=== PATIENT | female | born 1945 | race African-American/Black ===

== ENCOUNTER 2022-12-05 03:07 | Inpatient (IN) | payer OTHER ==
[~2022-12-05] VITALS: Ht 165.1 cm; Wt 55.3 kg
[2022-12-05] MEDS ORDERED: ONDANSETRON HCL 4MG/2ML INJ IV STA (04:39)
[2022-12-05 05:15] LABS: BASOPHILS % 1.2 % (0.0-2.0); EOSINOPHILS % 1.4 % (0.0-5.0); HEMOGLOBIN. 13.1 g/dL (12.0-16.0); LYMPHOCYTES % 30.7 % (20.0-50.0); MEAN CORPUSCULAR HEMOGLOBIN 32.8 pg (28.0-32.0); MEAN CORPUSCULAR VOLUME 97.6 fL (81.0-99.0); MONOCYTES % 7.5 % (2.0-8.0); NEUTROPHILS % 59.2 % (40.0-76.0); PLATELET 193 x1000/uL (130-400); RED BLOOD CELL COUNT 3.99 mill/uL (4.2-5.4); RED CELL DISTRIBUTION WIDTH 12.9 % (11.6-14.6)
[2022-12-05 05:35] LABS: CHLORIDE 106 mEq/L (98-107)
[2022-12-05 06:43] LABS: CLARITY URINE CLOUDY (CLEAR); COLOR URINE YELLOW (YELLOW); KETONES URINE NEGATIVE (NEGATIVE); LEUKOCYTE ESTERASE URINE NEGATIVE (NEGATIVE); NITRITE URINE NEGATIVE (NEGATIVE); OCCULT BLOOD URINE NEGATIVE (NEGATIVE); PROTEIN URINE NEGATIVE (NEGATIVE); SPECIFIC GRAVITY URINE 1.017 (1.005-1.030)
[2022-12-05] MEDS ORDERED: ONDANSETRON HCL 4MG/2ML INJ IV NR (11:45)
[2022-12-05] MEDS ORDERED: MORPHINE SULFATE 4 MG/ML CPJ (NOT FOR IM USE) IV ONE ×2 (12:30→18:15)
[2022-12-05 13:01] LABS: BASOPHILS % 1.2 % (0.0-2.0); EOSINOPHILS % 1.1 % (0.0-5.0); HEMATOCRIT. 36.9 % (36.0-48.0); HEMOGLOBIN. 12.4 g/dL (12.0-16.0); LYMPHOCYTES % 34.8 % (20.0-50.0); MEAN CORPUSCULAR HEMOGLOBIN 32.9 pg (28.0-32.0); MEAN CORPUSCULAR VOLUME 97.8 fL (81.0-99.0); MEAN PLATELET VOLUME 8.7 fl (7.4-10.4); MONOCYTES % 8.5 % (2.0-8.0); NEUTROPHILS % 54.4 % (40.0-76.0); PLATELET 189 x1000/uL (130-400); RED BLOOD CELL COUNT 3.78 mill/uL (4.2-5.4); RED CELL DISTRIBUTION WIDTH 13.1 % (11.6-14.6)
[2022-12-05] MEDS ORDERED: IOHEXOL-350 100 ML BOTTLE ONE (14:24)
[2022-12-05 15:02] LABS: PROTHROMBIN TIME 11.2 sec (9.6-11.0)
[2022-12-05 16:00] LABS: CHLORIDE 109 mEq/L (98-107)
[2022-12-05 16:06] LABS: ETHANOL BLOOD < 10 mg/dL
[2022-12-06] MEDS ORDERED: MORPHINE SULFATE 2 MG/ML CPJ (NOT FOR IM USE) IV NR (04:45)
[2022-12-06 09:30] VITALS: BP 148/84
[2022-12-06] MEDS ORDERED: IPRATROPIUM/ALBUTEROL 0.5-3(2.5)MG/3ML NEB HHN PRN (12:45)
[2022-12-06] MEDS ORDERED: ACETAMINOPHEN 325MG TABLET PO PRN (12:45)
[2022-12-06] MEDS ORDERED: ONDANSETRON HCL 4MG/2ML INJ IV PRN (12:45)
[2022-12-06] MEDS: ENOXAPARIN 40MG/0.4ML SYR SUBCUT SCH (13:00)
[2022-12-06 16:00] VITALS: BP 154/70
[2022-12-06] MEDS: MORPHINE SULFATE 2 MG/ML CPJ (NOT FOR IM USE) IV PRN (16:00)
[2022-12-06 16:14] LABS: CREATINE KINASE MB FRACTION 1.4 ng/mL (0.5-3.6)
[2022-12-06 16:20] LABS: BASOPHILS % 0.8 % (0.0-2.0); EOSINOPHILS % 1.3 % (0.0-5.0); HEMOGLOBIN. 13.2 g/dL (12.0-16.0); LYMPHOCYTES % 28.7 % (20.0-50.0); MEAN CORPUSCULAR HEMOGLOBIN 32.5 pg (28.0-32.0); MEAN CORPUSCULAR VOLUME 98.5 fL (81.0-99.0); MEAN PLATELET VOLUME 8.7 fl (7.4-10.4); MONOCYTES % 8.9 % (2.0-8.0); NEUTROPHILS % 60.3 % (40.0-76.0); PLATELET 202 x1000/uL (130-400); RED BLOOD CELL COUNT 4.06 mill/uL (4.2-5.4); RED CELL DISTRIBUTION WIDTH 12.9 % (11.6-14.6)
[2022-12-06 20:00] VITALS: BP 124/73
[2022-12-06] MEDS: SODIUM CHLORIDE 0.45% 1,000 ML IV SCH (20:00)
[2022-12-06] MEDS ORDERED: LEVO100T9 MT (22:03)
[2022-12-06] MEDS ORDERED: CARV12.545 MT (22:03)
[2022-12-06] MEDS ORDERED: GABA-533 MT (22:03)
[2022-12-06] MEDS ORDERED: PANT40TA51 MT (22:03)
[2022-12-06] MEDS ORDERED: SACU1TAB7 MT (22:03)
[2022-12-06] MEDS ORDERED: HYDR-4005 PO (22:03)
[2022-12-06] MEDS ORDERED: NIFE-32 MT (22:04)
[2022-12-06] MEDS ORDERED: LORA10TA7 MT (22:04)
[2022-12-06] MEDS ORDERED: ONDA8TAB13 PO (22:04)
[2022-12-06 23:52] LABS: CREATINE KINASE MB FRACTION 1.2 ng/mL (0.5-3.6)
[2022-12-07] VITALS: BP 145/84
[2022-12-07] MEDS: MORPHINE SULFATE 2 MG/ML CPJ (NOT FOR IM USE) IV PRN ×5 (00:39→20:51)
[2022-12-07 04:00] VITALS: BP 150/82
[2022-12-07 07:16] LABS: BASOPHILS % 0.9 % (0.0-2.0); EOSINOPHILS % 1.6 % (0.0-5.0); HEMATOCRIT. 37.8 % (36.0-48.0); HEMOGLOBIN. 12.6 g/dL (12.0-16.0); LYMPHOCYTES % 28.2 % (20.0-50.0); MEAN CORPUSCULAR HEMOGLOBIN 32.6 pg (28.0-32.0); MEAN CORPUSCULAR VOLUME 97.7 fL (81.0-99.0); MEAN PLATELET VOLUME 8.6 fl (7.4-10.4); MONOCYTES % 10.6 % (2.0-8.0); NEUTROPHILS % 58.7 % (40.0-76.0); PLATELET 186 x1000/uL (130-400); RED BLOOD CELL COUNT 3.87 mill/uL (4.2-5.4); RED CELL DISTRIBUTION WIDTH 12.8 % (11.6-14.6)
[2022-12-07 08:00] VITALS: BP 145/79
[2022-12-07] MEDS: SODIUM CHLORIDE 0.45% 1,000 ML IV SCH (08:45)
[2022-12-07 12:00] VITALS: BP 143/89
[2022-12-07] MEDS: ENOXAPARIN 40MG/0.4ML SYR SUBCUT SCH (13:00)
[2022-12-07] MEDS ORDERED: NALOXONE HCL 0.4MG/ML VIAL IV PRN (13:15)
[2022-12-07] MEDS ORDERED: SENNOSIDES 8.6MG TABLET PO PRN (17:00)
[2022-12-07] MEDS ORDERED: BISACODYL 10MG SUPP PR PRN (17:00)
[2022-12-07] MEDS ORDERED: LACTULOSE 20G/30ML UDC PO NR (17:00)
[2022-12-07 20:00] VITALS: BP 155/88
[2022-12-08] VITALS: BP 135/72
[2022-12-08] MEDS: MORPHINE SULFATE 2 MG/ML CPJ (NOT FOR IM USE) IV PRN (03:51)
[2022-12-08 04:00] VITALS: BP 148/85
[2022-12-08] MEDS: SODIUM CHLORIDE 0.45% 1,000 ML IV SCH (04:45)
[2022-12-08 08:00] VITALS: BP 159/99
[2022-12-08] MEDS ORDERED: DOCUSATE SODIUM 250MG CAPSULE PO SCH (09:00)
[2022-12-08 11:54] VITALS: BP 138/70
[2022-12-08] MEDS ORDERED: BISACODYL 10MG SUPP PR NR (12:45)
[2022-12-08] MEDS ORDERED: ALBUTEROL (0.083%) 2.5MG/3ML NEB HHN PRN (13:30)
[2022-12-08] MEDS ORDERED: IPRATROPIUM BROMIDE (0.02%) 0.5MG/2.5ML NEB HHN PRN (13:30)
== END 2022-12-08 14:00 | disposition home or self-care (01) | DRG 394 ==
LOC: ER 03:07 → 6EST 22:37
PROVIDERS: ADMIT Internal Medicine; ATTEND Internal Medicine
DX: K55.069 Acute infarction of intestine, part and extent unspecified (principal); I74.09 Other arterial embolism and thrombosis of abdominal aorta; K55.1 Chronic vascular disorders of intestine; I71.23 Aneurysm of the descending thoracic aorta, without rupture; I71.43 Infrarenal abdominal aortic aneurysm, without rupture; I10 Essential (primary) hypertension; G89.29 Other chronic pain; Z20.822 Contact with and (suspected) exposure to COVID-19; Z95.0 Presence of cardiac pacemaker; Z90.49 Acquired absence of other specified parts of digestive tract; R74.01 Elevation of levels of liver transaminase levels; Z90.710 Acquired absence of both cervix and uterus; Z95.828 Presence of other vascular implants and grafts; Z85.3 Personal history of malignant neoplasm of breast; Z88.6 Allergy status to analgesic agent
CPT/HCPCS: 36415; 71045; 74174; 74176; 76700; 80048; 80053; 80061; 80076; 80320; 81003; 82550; 82553; 83036; 83605; 83880; 84484; 85025; 86850; 86900; 87426; 93005; 99285; C9803; J1650; J2270; J2405; Q9967; G0480